=== PATIENT | male | born 2000 | race Caucasian/White ===

== ENCOUNTER 2025-05-01 19:35 | Emergency (ER) | payer SELFPAY ==
[2025-05-01 19:52] VITALS: BP 121/73; PULSE 80; RESP 18; TEMP 98.2; BMI 24.3
[2025-05-01] MEDS ORDERED: ONDANSETRON 4 MG/2 ML VIAL ONE (20:42)
[2025-05-01] MEDS ORDERED: FAMOTIDINE 20 MG/50 ML IVPB 20 MG/50 ML MG IVPB ONE (20:42)
[2025-05-01] MEDS ORDERED: MAG HYDROX/AL HYDROX/SIMETH 30 ML UNIT-DOSE CUP ONE (20:42)
[2025-05-01] MEDS: LACTATED RINGERS SOLUTION 1000 ML INFUS.BAG IV ONE (20:54)
[2025-05-01] MEDS: ONDANSETRON 4 MG/2 ML VIAL IVPB ONE (20:54)
[2025-05-01] MEDS: MAG HYDROX/AL HYDROX/SIMETH 30 ML UNIT-DOSE CUP PO ONE (20:54)
[2025-05-01] MEDS: FAMOTIDINE 20 MG/50 ML IVPB 20 MG/50 ML MG IVPB ONE (20:54)
[2025-05-01 21:21] LABS: ABSOLUTE IMMATURE GRANULOCYTES 0.04 x10^3/uL (0.0-0.031); BASOPHILS # 0.07 x10^3/uL (0.01-0.08); EOSINOPHIL % 0.4 % (0.8-7.0); EOSINOPHILS # 0.04 x10^3/uL (0.04-0.54); MCHC 34.2 g/dl (32.3-36.5); MEAN CELL VOLUME 87.6 fl (79.0-92.2); MEAN PLT VOLUME 10.1 fl (9.4-12.4); MONOCYTE # 0.51 x10^3/uL (0.30-0.82); MONOCYTE % 5.4 % (5.3-12.2); RDW 12.8 % (11.9-15.3)
[2025-05-01 22:19] LABS: GLUCOSE,RANDOM 90.0 mg/dL (74-106); TOT PROT 8.4 g/dl (6.4-8.2)
[2025-05-01 22:20] LABS: CO2 23.0 mmol/L (21-32)
[2025-05-01 22:21] LABS: ALK PHOS 92.0 U/L (40-150)
[2025-05-01 22:24] LABS: SGOT/AST 34.0 U/L (5-34); SGPT/ALT 41.0 U/L (0-55)
[2025-05-01 22:25] LABS: CREATININE 0.7 mg/dL (0.55-1.3)
== END 2025-05-01 23:45 | disposition home or self-care (01) ==
LOC: JER 19:35
PROC: 3E033GC Introduction of Other Therapeutic Substance into Peripheral Vein, Percutaneous Approach (ICD-10-PCS; principal; 2025-05-01)
PROC: 3E033GC Introduction of Other Therapeutic Substance into Peripheral Vein, Percutaneous Approach (ICD-10-PCS; 2025-05-01)
DX: R11.2 Nausea with vomiting, unspecified (principal); R63.8 Other symptoms and signs concerning food and fluid intake; R10.13 Epigastric pain
CPT/HCPCS: 36415; 80053; 83690; 83735; 85025; 93005; 93010; 99284-25